=== PATIENT | female | born 1955 | race Two or more races ===

== ENCOUNTER 2019-01-20 19:07 | Emergency (ER) | payer SELFPAY ==
[~2019-01-20] VITALS: Ht 154.9 cm; Wt 62.1 kg
[2019-01-20 19:28] VITALS: Ht 154.9 cm; Wt 62.1 kg
[2019-01-20 19:43] LABS: PLATELET COUNT 232 x10^3mcL (130-400)
[2019-01-20 19:44] LABS: RED CELL DISTRIBUTION WIDTH 14.6 % (11.5-14.5)
[2019-01-20 19:52] LABS: CALCIUM 8.5 mg/dL (8.5-10.1); CARBON DIOXIDE 24.7 mmol/L (21-32); CHLORIDE SERUM 101 mmol/L (98-107); CREATININE SERUM 0.6 mg/dL (0.6-1.0); GFR1 > 60 mL/min; GLUCOSE SERUM 102 mg/dL (74-106); POTASSIUM SERUM 3.8 mmol/L (3.5-5.1); SODIUM SERUM 136 mmol/L (136-145)
[2019-01-20 19:56] LABS: ALBUMIN 3.9 g/dL (3.4-5.0); ALKALINE PHOSPHATASE 69 U/L (46-116); ALT/SGPT 31 U/L (14-59); AST/SGOT 15 U/L (15-37); BILIRUBIN TOTAL 0.5 mg/dL (0.20-1.00); LIPASE 262 IU/L (73-393); TOTAL PROTEIN, SERUM 7.4 g/dL (6.4-8.2)
[2019-01-20 19:58] LABS: microscopic required? NO
[2019-01-20 20:02] LABS: UA SPECIFIC GRAVITY <=1.005 (1.005-1.035); urine erythrocyte NEGATIVE (NEGATIVE)
[2019-01-20 20:57] VITALS: BP 119/76
== END 2019-01-20 20:57 | disposition home or self-care (01) ==
LOC: ED 19:07
PROVIDERS: Emergency Medicine
DX: K80.20 Calculus of gallbladder without cholecystitis without obstruction (principal); K42.9 Umbilical hernia without obstruction or gangrene; Q44.6 Cystic disease of liver
CPT/HCPCS: J1885; J2405

== ENCOUNTER 2020-04-06 18:02 | Emergency (ER) | payer SELFPAY ==
[~2020-04-06] VITALS: Ht 160 cm; Wt 49.9 kg
[2020-04-06 18:12] VITALS: Ht 160 cm; Wt 49.9 kg
[2020-04-06 19:06] LABS: BASOPHIL % 0.5 % (0-2); PLATELET COUNT 290 x10^3mcL (130-400); RED CELL DISTRIBUTION WIDTH 14.3 % (11.5-14.5)
[2020-04-06 19:21] LABS: CALCIUM 8.3 mg/dL (8.5-10.1); CARBON DIOXIDE 24.5 mmol/L (21-32); CHLORIDE SERUM 99 mmol/L (98-107); CREATININE SERUM 0.7 mg/dL (0.6-1.0); GFR1 > 60 mL/min; GLUCOSE SERUM 102 mg/dL (74-106); POTASSIUM SERUM 3.6 mmol/L (3.5-5.1); SODIUM SERUM 138 mmol/L (136-145)
[2020-04-06 19:35] LABS: FREE T4 0.99 ng/dL (0.76-1.46)
[2020-04-06 21:02] VITALS: BP 124/81
== END 2020-04-06 21:02 | disposition home or self-care (01) ==
LOC: ED 18:02
PROVIDERS: Student in an Organized Health Care Education/Training Program
DX: R00.2 Palpitations (principal); R05 Cough; R68.83 Chills (without fever); Z20.828 Contact with and (suspected) exposure to other viral communicable diseases
CPT/HCPCS: 82962; 83880; 84439; Q0092; U0003-CS